=== PATIENT | female | born 2000 | race African-American/Black ===

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

== ENCOUNTER 2019-11-02 10:24 | Inpatient (IN) ==
[2019-11-02] MEDS ORDERED: LR 500 ML IV ONE (10:48)
[2019-11-02] MEDS ORDERED: ZOFRAN IV PRN (10:48)
[2019-11-02] MEDS ORDERED: PEPCID PO PRN (10:48)
[2019-11-02] MEDS ORDERED: PENICILLIN G POTASSIUM 5 MILL.UNITS in NS 100 ML IV ONE (10:48)
[2019-11-02] MEDS ORDERED: AMPICILLIN 2 GM in NS 100 ML IV ONE (10:48)
[2019-11-02] MEDS ORDERED: STADOL IV PRN (10:48)
[2019-11-02] MEDS ORDERED: KEFZOL 1 GM/D5W 1 GM/50 ML IVPB IV PRN (10:48)
[2019-11-02] MEDS ORDERED: PEPCID PO ONE (10:48)
[2019-11-02] MEDS ORDERED: PEPCID IV PRN (10:48)
[2019-11-02] MEDS ORDERED: REGLAN PO ONE (10:48)
[2019-11-02] MEDS ORDERED: SODIUM CHLORIDE 0.9% INJ SCH (11:00)
[2019-11-02] MEDS ORDERED: PITOCIN 30 UNITS/NS 30 UNIT/500 ML IV.SOLN IV SCH (11:00)
[2019-11-02 11:04] LABS: URINE SOURCE VOIDED
[2019-11-02 11:19] LABS: BILIRUBIN URINE NEGATIVE (NEGATIVE); BLOOD URINE NEGATIVE (NEGATIVE); COLOR YELLOW; GLUCOSE URINE NEGATIVE (NEGATIVE); KETONE URINE NEGATIVE (NEGATIVE); LEUKOCYTES URINE MODERATE (NEGATIVE); NITRITE URINE NEGATIVE (NEGATIVE); PH URINE 7.5; PROTEIN URINE NEGATIVE (NEGATIVE); SP GRAVITY URINE 1.013; TURBIDITY URINE HAZY (CLEAR); UROBILINOGEN URINE NORMAL (NORMAL)
[2019-11-02] MEDS: LR 1,000 ML IV SCH ×3 (11:43→21:05)
[2019-11-02 11:54] LABS: AGAP 15; ALBUMIN 3.2 g/dL (3.5-5.0); ALKALINE PHOSPHATASE 273 U/L (32-104); BUN 6 mg/dL (8-22); CALCIUM 9.2 mg/dL (8.8-10.2); CHLORIDE 102 mmol/L (98-107); COSMO 269; CREATININE 0.7 mg/dL (0.5-0.9); ESTIMATED GFR > 60; GLUCOSE 84 mg/dL (70-104); GOT 20 U/L (10-30); GPT 11 U/L (10-36); POTASSIUM 3.9 mmol/L (3.5-5.1); SODIUM 136 mmol/L (136-145); TCO2 19 mmol/L (25-35); TOTAL BILIRUBIN 0.45 mg/dL (0.20-1.00); TOTAL PROTEIN 6.5 g/dL (6.3-8.3); URIC ACID 4.9 mg/dL (2.4-5.7)
[2019-11-02 13:58] LABS: PROTEIN CREAT RATIO 0.1; UR CREAT RANDOM 106.1 mg/dL (11-20); UR PROT RANDOM 15.2 mg/dL
[2019-11-02 14:32] LABS: EOS# 0.32 X1000 (0.0-0.7); EOS% 2.8 % (0.0-10.0); HEMATOCRIT 34.9 % (37.0-47.0); HEMOGLOBIN 11.8 g/dL (12.0-16.0); IMM GRAN# 0.12 X1000 (0.0-0.04); IMM GRAN% 1.1 % (0.0-0.5); MCH 32.9 PG (27-31); MCHC 33.8 g/dL (33-37); MCV 97.2 FL (81-99); MONO# 1.09 X1000 (0.11-0.59); MONO% 9.7 % (1.7-9.3); MPV 8.2 FL (7.4-10.4); NEUT# 7.15 X1000 (1.4-6.5); NEUT% 63.4 % (42.2-75.2); PLT 427 X1000 (130-400); RBC 3.59 XMIL (4.2-5.4); RDW 12.6 % (11.5-14.5); WBC 11.28 X1000 (4.8-10.8)
[2019-11-02] MEDS ORDERED: NS IV SCH (14:51)
[2019-11-02] MEDS ORDERED: PENICILLIN POTASSIUM IV SCH (14:51)
[2019-11-02] MEDS: AMPICILLIN 1 GM in NS 50 ML IV SCH ×2 (15:33→19:42)
--- NOTE | 2019-11-02 20:17 | HISTORY AND PHYSICAL ---
CHIEF COMPLAINT: Gestational hypertension. HISTORY OF PRESENT ILLNESS: The patient is a 19-year-old, G2, P1, female at 37 weeks and 4 days gestation with EDC of 11/19/2018. She has been receiving her care with Dr. Wilson. In the last 2 visits, the patient has had blood pressures in the 140s over 90s. On office visit today, patient had a blood pressure of 140/95 in the office, and decision was made to send patient to Labor and Delivery for induction for gestational hypertension. The patient denies any headache or vision problems. She denies any chest pain or shortness of breath. She denies any numbness or tingling. She denies any peripheral edema. It was reported from office that patient was having complaints of right upper quadrant pain and on discussion with patient, she states it is in her lower ribcage on both sides. Per check in office, she is found to be 3 cm and thick per Dr. Wilson. On arrival, heart tones reactive and reassuring with occasional contractions noted. Blood pressures were ranging in the 120s to 130s over 70s on Labor and Delivery. Lab workup was initiated revealing sodium of 136, potassium of 3.9, BUN of 6, creatinine 0.7, glucose of 84, uric acid of 4.9, calcium level of 9.2, AST of 20, ALT of 11, hemoglobin of 11.8, 34.9 hematocrit, platelets of 427,000, and a white count of 11.28. PCR was 0.1, and an RPR was found to be nonreactive. She is known GBS positive. Therefore, ampicillin was started per protocol at noon while workup was being obtained. PAST MEDICAL HISTORY: Asthma in childhood and seasonal allergies for which patient reports the springtime is worse. MEDICATIONS: ProAir inhaler last use 2 days ago. She states that she uses her inhaler approximately 1-5 times a month depending on the season. Zyrtec p.r.n., and vitamin. ALLERGIES: Milk, tomatoes, shellfish and tree nut. No known drug allergies. PAST SURGICAL HISTORY: No surgeries. OBSTETRIC HISTORY: Spontaneous vaginal delivery 2017. Female , 37 weeks gestation, spontaneous rupture of membranes with Pitocin augmentation. Otherwise, no complications or problems with , 5 pounds 13 ounce infant. She does have a history of Chlamydia positive in 2016 that was treated. Chlamydia screening during , negative. FAMILY HISTORY: The patient reports as unremarkable. SOCIAL HISTORY: She denies tobacco use. Denies alcohol use and denies illicit drug use on direct questioning. PHYSICAL EXAMINATION: VITAL SIGNS: On intake, blood pressure 120/73, pulse ox 99% room air, respirations 20, temperature 98.8 degrees. GENERAL: Alert and oriented x3. No acute distress. CARDIOVASCULAR: Regular rate and rhythm. No murmur appreciated. LUNGS: Clear to auscultation bilaterally. ABDOMEN: Soft, nondistended, nontender. Gravid uterus, nontender. By [place] approximately 6 pounds in weight for fetus. Cephalic in presentation. Christopher's negative. No CVA tenderness. PELVIC EXAM: Normal external genitalia. No lesions noted. 3, 50, -2 on exam. Membranes intact. Midposition vertex. EXTREMITIES: No calf pain. No edema on exam. Reflexes 1+ patella and Achilles. No clonus. ASSESSMENT: A 19-year-old, G2, P1, female at 37 weeks 4 days with gestational hypertension for induction of labor. PLAN: 1. Admit to Labor and Delivery for induction secondary to gestational hypertension documented in the outpatient setting during care. 2. PIH labs performed. Creatinine 0.7, AST 20, ALT 11, platelets 427,000. Hemoglobin and hematocrit 11.8 and 34.9 respectively. Uric acid of 4.9 and a PCR ratio of 0.1. PIH labs within normal limits. 3. Continuous electronic monitoring. 4. GBS positive status. Ampicillin 2 g for initiation and will run 1 g IV q.4 hours. First dose of ampicillin was given at 12 noon. 5. The patient is 3 cm dilated, 50% effaced, -2 station, midposition with occasional contraction on toco. Discussed with patient induction risks and benefits including some theoretical risk of increased need of section as below 39 weeks, as well as risks for longer labor versus natural onset of labor. Pitocin use itself and the risks and benefits as well were discussed. The patient stated understanding and that she had Pitocin with her previous delivery as she was ruptured and was not juan f. The patient states understanding for Pitocin for induction and wishes to proceed. We will plan on starting Pitocin around 3:00 to 3:30 p.m. to allow penicillin on board prior. 6. The patient does desire epidural for pain management when time. I discussed with patient waiting until uncomfortable or cervical change or if water would spontaneously break. I did discuss with patient if lack of cervical change, the necessity for AROM and the risks and benefits of this if needed. 7. Chart reviewed. The patient declined Tdap and flu in the setting. We will address again . Rubella immune status noted. 8. Discussed with patient as being induced for gestational hypertension. Blood pressure is now stable. Blood pressures could go up during labor, during delivery or even , which would necessitate being treated with medications such as magnesium sulfate, and the risks and benefits of this as well as the possibility of need for antihypertensive medications including labetalol or hydralazine. She states understanding for this possibility. 9. Expectant management. Anticipate vaginal delivery. cc: Sandy Shaw MD MTDD
--- NOTE | 2019-11-02 20:52 | OB/GYN PROGRESS NOTE ---
- Subjective Patient without distress, discussed ultrasound for presentation, which was vertex, and also discussed using the Cook catheter to help dilate her cervix, patient agreeable to the same. OB Physical Exam Vital Signs - 8 hr 11/02/19 14:47 11/02/19 17:00 11/02/19 17:51 Temperature 98.7 F 99.5 F Pulse Rate 90 82 87 Respiratory Rate 20 20 20 Blood Pressure 122/75 123/72 121/72 O2 Sat by Pulse Oximetry 99 99 - CONSTITUTIONAL General Appearance: appears well, no apparent distress - GENITOURINARY Vaginal Exam: 2.5 cm, cook catheter placed and filled with 80/80 cc of fluid, patient laurie erated procedure well Cervical Effacement: 70 Station: -1 Active Medications Generic Name Dose Route Start Last Admin Trade Name Freq PRN Reason Stop Dose Admin Acetaminophen 650 mg 11/02/19 10:48 Tylenol PO Q4-6H PRN PRN Headache Butorphanol Tartrate 2 mg 11/02/19 10:48 Stadol IV PRN PRN Pain Famotidine 20 mg 11/02/19 10:48 Pepcid IV Q12H PRN PRN GI upset or indigestion Famotidine 40 mg 11/02/19 10:48 Pepcid PO Q12H PRN PRN GI upset or indigestion Ampicillin Sodium 1 gm/ Sodium 50 mls @ 100 mls/hr 11/02/19 14:49 11/02/19 19:42 Chloride IV 100 mls/hr Q4H VIKRAM Administration Cefazolin Sodium/Dextrose 1 gm in 50 mls @ 100 mls/hr 11/02/19 10:48 Kefzol 1 Gm/D5w IV ONCE PRN PRN SECTION Lactated Ringer's 1,000 mls @ 125 mls/hr 11/02/19 11:00 11/02/19 16:41 Lr IV 125 mls/hr .Q8H VIKRAM Administration Oxytocin/Sodium Chloride 30 unit in 500 mls @ 0 mls/hr 11/02/19 11:00 11/02/19 15:00 Pitocin 30 Units/Ns IV 1 mls/hr .Q0M VIKRAM Administration As Directed Ondansetron HCl 4 mg 11/02/19 10:48 Zofran IV PRN PRN Nausea Sodium Chloride 5 - 10 ml 11/02/19 11:00 Sodium Chloride 0.9% INJ DIRECTED VIKRAM Laboratory Results - last 24 hr 11/02/19 11/02/19 11/02/19 10:40 10:40 10:40 WBC 11.28 H RBC 3.59 L Hgb 11.8 L Hct 34.9 L MCV 97.2 MCH 32.9 H MCHC 33.8 RDW Std Deviation 12.6 Plt Count 427 H MPV 8.2 Immature Gran % (Auto) 1.1 H Neut % (Auto) 63.4 Lymph % (Auto) 23.0 [place] % (Auto) 9.7 H Eos % (Auto) 2.8 Baso % (Auto) 0.0 Immature Gran # (Auto) 0.12 H Neut # (Auto) 7.15 H Lymph # (Auto) 2.60 [place] # (Auto) 1.09 H Eos # (Auto) 0.32 Baso # (Auto) 0.00 Sodium Potassium Chloride Carbon Dioxide Anion Gap BUN Creatinine Estimated GFR/1.73 m2 BUN/Creatinine Ratio Glucose Calculated Osmolality Uric Acid Calcium Total Bilirubin AST ALT Alkaline Phosphatase Total Protein Albumin Globulin Albumin/Globulin Ratio Urine Source VOIDED Urine Color YELLOW Urine Turbidity HAZY Urine pH 7.5 Ur Specific [place] 1.013 Urine Protein NEGATIVE Ur Glucose (Stick) NEGATIVE Ur Ketones (Stick) NEGATIVE Urine Blood NEGATIVE Urine Nitrite NEGATIVE Urine Bilirubin NEGATIVE Urobilinogen Dipstick NORMAL Urine Leukocytes MODERATE A Ur Random Creatinine U Random Total Protein Protein/Creatinin Ratio RPR NON-REACTIVE 11/02/19 11/02/19 10:45 11:08 WBC RBC Hgb Hct MCV MCH MCHC RDW Std Deviation Plt Count MPV Immature Gran % (Auto) Neut % (Auto) Lymph % (Auto) [place] % (Auto) Eos % (Auto) Baso % (Auto) Immature Gran # (Auto) Neut # (Auto) Lymph # (Auto) [place] # (Auto) Eos # (Auto) Baso # (Auto) Sodium 136 Potassium 3.9 Chloride 102 Carbon Dioxide 19 L Anion Gap 15 BUN 6 L Creatinine 0.7 Estimated GFR/1.73 m2 > 60 BUN/Creatinine Ratio 9 Glucose 84 Calculated Osmolality 269 Uric Acid 4.9 Calcium 9.2 Total Bilirubin 0.45 AST 20 ALT 11 Alkaline Phosphatase 273 H Total Protein 6.5 Albumin 3.2 L Globulin 3.3 Albumin/Globulin Ratio 1.0 Urine Source Urine Color Urine Turbidity Urine pH Ur Specific [place] Urine Protein Ur Glucose (Stick) Ur Ketones (Stick) Urine Blood Urine Nitrite Urine Bilirubin Urobilinogen Dipstick Urine Leukocytes Ur Random Creatinine 106.1 H U Random Total Protein 15.2 Protein/Creatinin Ratio 0.1 RPR
[2019-11-02] MEDS ORDERED: NAROPIN 0.2% INJ ONE (21:15)
[2019-11-02] MEDS ORDERED: FENTANYL-BUPIV-NS 500 MCG-0.125% 250 ML EPIDURAL SCH (22:00)
--- NOTE | 2019-11-02 23:03 | OB/GYN PROGRESS NOTE ---
- Subjective comfortable with epidural, bliss been placed OB Physical Exam Vital Signs - 8 hr 11/02/19 17:00 11/02/19 17:51 Temperature 99.5 F Pulse Rate 82 87 Respiratory Rate 20 20 Blood Pressure 123/72 121/72 O2 Sat by Pulse Oximetry 99 99 - CONSTITUTIONAL General Appearance: alert, no apparent distress - GENITOURINARY Cervica Dilation: 6 cm Cervical Effacement: 90 Station: -1 Heart Rate: stable Active Medications Generic Name Dose Route Start Last Admin Trade Name Freq PRN Reason Stop Dose Admin Acetaminophen 650 mg 11/02/19 10:48 Tylenol PO Q4-6H PRN PRN Headache Butorphanol Tartrate 2 mg 11/02/19 10:48 Stadol IV PRN PRN Pain Famotidine 20 mg 11/02/19 10:48 Pepcid IV Q12H PRN PRN GI upset or indigestion Famotidine 40 mg 11/02/19 10:48 Pepcid PO Q12H PRN PRN GI upset or indigestion Ampicillin Sodium 1 gm/ Sodium 50 mls @ 100 mls/hr 11/02/19 14:49 11/02/19 19:42 Chloride IV 100 mls/hr Q4H VIKRAM Administration Cefazolin Sodium/Dextrose 1 gm in 50 mls @ 100 mls/hr 11/02/19 10:48 Kefzol 1 Gm/D5w IV ONCE PRN PRN SECTION Lactated Ringer's 1,000 mls @ 125 mls/hr 11/02/19 11:00 11/02/19 21:05 Lr IV 125 mls/hr .Q8H VIKRAM Administration Oxytocin/Sodium Chloride 30 unit in 500 mls @ 0 mls/hr 11/02/19 11:00 11/02/19 15:00 Pitocin 30 Units/Ns IV 1 mls/hr .Q0M VIKRAM Administration As Directed Fentanyl/Bupivacaine/Sodium Chlor 250 mls @ 0 mls/hr 11/02/19 22:00 11/02/19 22:34 [id number] 500 Mcg-0.125% EPIDURAL 12 mls/hr DIRECTED VIKRAM Administration As Directed Ondansetron HCl 4 mg 11/02/19 10:48 Zofran IV PRN PRN Nausea Sodium Chloride 5 - 10 ml 11/02/19 11:00 Sodium Chloride 0.9% INJ DIRECTED VIKRAM Laboratory Results - last 24 hr 11/02/19 11/02/19 11/02/19 10:40 10:40 10:40 WBC 11.28 H RBC 3.59 L Hgb 11.8 L Hct 34.9 L MCV 97.2 MCH 32.9 H MCHC 33.8 RDW Std Deviation 12.6 Plt Count 427 H MPV 8.2 Immature Gran % (Auto) 1.1 H Neut % (Auto) 63.4 Lymph % (Auto) 23.0 [place] % (Auto) 9.7 H Eos % (Auto) 2.8 Baso % (Auto) 0.0 Immature Gran # (Auto) 0.12 H Neut # (Auto) 7.15 H Lymph # (Auto) 2.60 [place] # (Auto) 1.09 H Eos # (Auto) 0.32 Baso # (Auto) 0.00 Sodium Potassium Chloride Carbon Dioxide Anion Gap BUN Creatinine Estimated GFR/1.73 m2 BUN/Creatinine Ratio Glucose Calculated Osmolality Uric Acid Calcium Total Bilirubin AST ALT Alkaline Phosphatase Total Protein Albumin Globulin Albumin/Globulin Ratio Urine Source VOIDED Urine Color YELLOW Urine Turbidity HAZY Urine pH 7.5 Ur Specific [place] 1.013 Urine Protein NEGATIVE Ur Glucose (Stick) NEGATIVE Ur Ketones (Stick) NEGATIVE Urine Blood NEGATIVE Urine Nitrite NEGATIVE Urine Bilirubin NEGATIVE Urobilinogen Dipstick NORMAL Urine Leukocytes MODERATE A Ur Random Creatinine U Random Total Protein Protein/Creatinin Ratio RPR NON-REACTIVE 11/02/19 11/02/19 10:45 11:08 WBC RBC Hgb Hct MCV MCH MCHC RDW Std Deviation Plt Count MPV Immature Gran % (Auto) Neut % (Auto) Lymph % (Auto) [place] % (Auto) Eos % (Auto) Baso % (Auto) Immature Gran # (Auto) Neut # (Auto) Lymph # (Auto) [place] # (Auto) Eos # (Auto) Baso # (Auto) Sodium 136 Potassium 3.9 Chloride 102 Carbon Dioxide 19 L Anion Gap 15 BUN 6 L Creatinine 0.7 Estimated GFR/1.73 m2 > 60 BUN/Creatinine Ratio 9 Glucose 84 Calculated Osmolality 269 Uric Acid 4.9 Calcium 9.2 Total Bilirubin 0.45 AST 20 ALT 11 Alkaline Phosphatase 273 H Total Protein 6.5 Albumin 3.2 L Globulin 3.3 Albumin/Globulin Ratio 1.0 Urine Source Urine Color Urine Turbidity Urine pH Ur Specific [place] Urine Protein Ur Glucose (Stick) Ur Ketones (Stick) Urine Blood Urine Nitrite Urine Bilirubin Urobilinogen Dipstick Urine Leukocytes Ur Random Creatinine 106.1 H U Random Total Protein 15.2 Protein/Creatinin Ratio 0.1 RPR OB Assessment & Plan (1) Normal labor Status: Acute Plan: routine care
[2019-11-03] MEDS: AMPICILLIN 1 GM in NS 50 ML IV SCH ×3 (01:20→04:44)
--- NOTE | 2019-11-03 01:35 | OB/GYN PROGRESS NOTE ---
- Subjective comfortable OB Physical Exam Vital Signs - 8 hr 11/02/19 17:51 Pulse Rate 87 Respiratory Rate 20 Blood Pressure 121/72 O2 Sat by Pulse Oximetry 99 - CONSTITUTIONAL General Appearance: no apparent distress - GENITOURINARY Vaginal Exam: AROM, IUPC placed Cervica Dilation: 6.5 cm Cervical Effacement: 90 Station: 0 Heart Rate: note early decels, patient repositioned, o2 Active Medications Generic Name Dose Route Start Last Admin Trade Name Freq PRN Reason Stop Dose Admin Acetaminophen 650 mg 11/02/19 10:48 Tylenol PO Q4-6H PRN PRN Headache Butorphanol Tartrate 2 mg 11/02/19 10:48 Stadol IV PRN PRN Pain Famotidine 20 mg 11/02/19 10:48 Pepcid IV Q12H PRN PRN GI upset or indigestion Famotidine 40 mg 11/02/19 10:48 Pepcid PO Q12H PRN PRN GI upset or indigestion Ampicillin Sodium 1 gm/ Sodium 50 mls @ 100 mls/hr 11/02/19 14:49 11/03/19 01:20 Chloride IV 100 mls/hr Q4H VIKRAM Administration Cefazolin Sodium/Dextrose 1 gm in 50 mls @ 100 mls/hr 11/02/19 10:48 Kefzol 1 Gm/D5w IV ONCE PRN PRN SECTION Lactated Ringer's 1,000 mls @ 125 mls/hr 11/02/19 11:00 11/02/19 21:05 Lr IV 125 mls/hr .Q8H VIKRAM Administration Oxytocin/Sodium Chloride 30 unit in 500 mls @ 0 mls/hr 11/02/19 11:00 11/02/19 15:00 Pitocin 30 Units/Ns IV 1 mls/hr .Q0M VIKRAM Administration As Directed Fentanyl/Bupivacaine/Sodium Chlor 250 mls @ 0 mls/hr 11/02/19 22:00 11/02/19 22:34 [id number]-Iz 500 Mcg-0.125% EPIDURAL 12 mls/hr DIRECTED VIKRAM Administration As Directed Ondansetron HCl 4 mg 11/02/19 10:48 Zofran IV PRN PRN Nausea Sodium Chloride 5 - 10 ml 11/02/19 11:00 Sodium Chloride 0.9% INJ DIRECTED VIKRAM Laboratory Results - last 24 hr 11/02/19 11/02/19 11/02/19 10:40 10:40 10:40 WBC 11.28 H RBC 3.59 L Hgb 11.8 L Hct 34.9 L MCV 97.2 MCH 32.9 H MCHC 33.8 RDW Std Deviation 12.6 Plt Count 427 H MPV 8.2 Immature Gran % (Auto) 1.1 H Neut % (Auto) 63.4 Lymph % (Auto) 23.0 [place] % (Auto) 9.7 H Eos % (Auto) 2.8 Baso % (Auto) 0.0 Immature Gran # (Auto) 0.12 H Neut # (Auto) 7.15 H Lymph # (Auto) 2.60 [place] # (Auto) 1.09 H Eos # (Auto) 0.32 Baso # (Auto) 0.00 Sodium Potassium Chloride Carbon Dioxide Anion Gap BUN Creatinine Estimated GFR/1.73 m2 BUN/Creatinine Ratio Glucose Calculated Osmolality Uric Acid Calcium Total Bilirubin AST ALT Alkaline Phosphatase Total Protein Albumin Globulin Albumin/Globulin Ratio Urine Source VOIDED Urine Color YELLOW Urine Turbidity HAZY Urine pH 7.5 Ur Specific [place] 1.013 Urine Protein NEGATIVE Ur Glucose (Stick) NEGATIVE Ur Ketones (Stick) NEGATIVE Urine Blood NEGATIVE Urine Nitrite NEGATIVE Urine Bilirubin NEGATIVE Urobilinogen Dipstick NORMAL Urine Leukocytes MODERATE A Ur Random Creatinine U Random Total Protein Protein/Creatinin Ratio RPR NON-REACTIVE 11/02/19 11/02/19 10:45 11:08 WBC RBC Hgb Hct MCV MCH MCHC RDW Std Deviation Plt Count MPV Immature Gran % (Auto) Neut % (Auto) Lymph % (Auto) [place] % (Auto) Eos % (Auto) Baso % (Auto) Immature Gran # (Auto) Neut # (Auto) Lymph # (Auto) [place] # (Auto) Eos # (Auto) Baso # (Auto) Sodium 136 Potassium 3.9 Chloride 102 Carbon Dioxide 19 L Anion Gap 15 BUN 6 L Creatinine 0.7 Estimated GFR/1.73 m2 > 60 BUN/Creatinine Ratio 9 Glucose 84 Calculated Osmolality 269 Uric Acid 4.9 Calcium 9.2 Total Bilirubin 0.45 AST 20 ALT 11 Alkaline Phosphatase 273 H Total Protein 6.5 Albumin 3.2 L Globulin 3.3 Albumin/Globulin Ratio 1.0 Urine Source Urine Color Urine Turbidity Urine pH Ur Specific [place] Urine Protein Ur Glucose (Stick) Ur Ketones (Stick) Urine Blood Urine Nitrite Urine Bilirubin Urobilinogen Dipstick Urine Leukocytes Ur Random Creatinine 106.1 H U Random Total Protein 15.2 Protein/Creatinin Ratio 0.1 RPR OB Assessment & Plan (1) Normal labor Status: Acute Plan: follow closely, expect delivery
[2019-11-03] MEDS: LR 1,000 ML IV SCH (03:38)
--- NOTE | 2019-11-03 04:14 | OB/GYN PROGRESS NOTE ---
- Subjective comfortable OB Physical Exam - CONSTITUTIONAL General Appearance: no apparent distress - GENITOURINARY Cervica Dilation: 8.5 Cervical Effacement: 100 Station: 0 Heart Rate: reactive Active Medications Generic Name Dose Route Start Last Admin Trade Name Freq PRN Reason Stop Dose Admin Acetaminophen 650 mg 11/02/19 10:48 Tylenol PO Q4-6H PRN PRN Headache Butorphanol Tartrate 2 mg 11/02/19 10:48 Stadol IV PRN PRN Pain Famotidine 20 mg 11/02/19 10:48 Pepcid IV Q12H PRN PRN GI upset or indigestion Famotidine 40 mg 11/02/19 10:48 Pepcid PO Q12H PRN PRN GI upset or indigestion Ampicillin Sodium 1 gm/ Sodium 50 mls @ 100 mls/hr 11/02/19 14:49 11/03/19 02:50 Chloride IV Not Given Q4H VIKRAM Cefazolin Sodium/Dextrose 1 gm in 50 mls @ 100 mls/hr 11/02/19 10:48 Kefzol 1 Gm/D5w IV ONCE PRN PRN SECTION Lactated Ringer's 1,000 mls @ 125 mls/hr 11/02/19 11:00 11/03/19 03:38 Lr IV Not Given .Q8H VIKRAM Oxytocin/Sodium Chloride 30 unit in 500 mls @ 0 mls/hr 11/02/19 11:00 1 01/03/19 15:00 Pitocin 30 Units/Ns IV 1 mls/hr .Q0M VIKRAM Administration As Directed Fentanyl/Bupivacaine/Sodium Chlor 250 mls @ 0 mls/hr 11/02/19 22:00 11/02/19 22:34 Lafmdnqt-Fdcuh-Ho 500 Mcg-0.125% EPIDURAL 12 mls/hr DIRECTED VIKRAM Administration As Directed Ondansetron HCl 4 mg 11/02/19 10:48 Zofran IV PRN PRN Nausea Sodium Chloride 5 - 10 ml 11/02/19 11:00 Sodium Chloride 0.9% INJ DIRECTED VIKRAM Laboratory Results - last 24 hr 11/02/19 11/02/19 11/02/19 10:40 10:40 10:40 WBC 11.28 H RBC 3.59 L Hgb 11.8 L Hct 34.9 L MCV 97.2 MCH 32.9 H MCHC 33.8 RDW Std Deviation 12.6 Plt Count 427 H MPV 8.2 Immature Gran % (Auto) 1.1 H Neut % (Auto) 63.4 Lymph % (Auto) 23.0 [place] % (Auto) 9.7 H Eos % (Auto) 2.8 Baso % (Auto) 0.0 Immature Gran # (Auto) 0.12 H Neut # (Auto) 7.15 H Lymph # (Auto) 2.60 [place] # (Auto) 1.09 H Eos # (Auto) 0.32 Baso # (Auto) 0.00 Sodium Potassium Chloride Carbon Dioxide Anion Gap BUN Creatinine Estimated GFR/1.73 m2 BUN/Creatinine Ratio Glucose Calculated Osmolality Uric Acid Calcium Total Bilirubin AST ALT Alkaline Phosphatase Total Protein Albumin Globulin Albumin/Globulin Ratio Urine Source VOIDED Urine Color YELLOW Urine Turbidity HAZY Urine pH 7.5 Ur Specific [place] 1.013 Urine Protein NEGATIVE Ur Glucose (Stick) NEGATIVE Ur Ketones (Stick) NEGATIVE Urine Blood NEGATIVE Urine Nitrite NEGATIVE Urine Bilirubin NEGATIVE Urobilinogen Dipstick NORMAL Urine Leukocytes MODERATE A Ur Random Creatinine U Random Total Protein Protein/Creatinin Ratio RPR NON-REACTIVE 11/02/19 11/02/19 10:45 11:08 WBC RBC Hgb Hct MCV MCH MCHC RDW Std Deviation Plt Count MPV Immature Gran % (Auto) Neut % (Auto) Lymph % (Auto) [place] % (Auto) Eos % (Auto) Baso % (Auto) Immature Gran # (Auto) Neut # (Auto) Lymph # (Auto) [place] # (Auto) Eos # (Auto) Baso # (Auto) Sodium 136 Potassium 3.9 Chloride 102 Carbon Dioxide 19 L Anion Gap 15 BUN 6 L Creatinine 0.7 Estimated GFR/1.73 m2 > 60 BUN/Creatinine Ratio 9 Glucose 84 Calculated Osmolality 269 Uric Acid 4.9 Calcium 9.2 Total Bilirubin 0.45 AST 20 ALT 11 Alkaline Phosphatase 273 H Total Protein 6.5 Albumin 3.2 L Globulin 3.3 Albumin/Globulin Ratio 1.0 Urine Source Urine Color Urine Turbidity Urine pH Ur Specific [place] Urine Protein Ur Glucose (Stick) Ur Ketones (Stick) Urine Blood Urine Nitrite Urine Bilirubin Urobilinogen Dipstick Urine Leukocytes Ur Random Creatinine 106.1 H U Random Total Protein 15.2 Protein/Creatinin Ratio 0.1 RPR OB Assessment & Plan (1) Normal labor Plan: Patient placed on the peanut ball, pitocin restarted on #2, continue to follow closely
[2019-11-03] MEDS ORDERED: BENADRYL PO PRN (06:46)
[2019-11-03] MEDS ORDERED: BENADRYL IV PRN (06:46)
[2019-11-03] MEDS ORDERED: PITOCIN IM PRN (06:46)
[2019-11-03] MEDS ORDERED: PERI MEDS (DERMOPLAST/NUPERCAINAL/TUCKS) MISC PRN (06:46)
[2019-11-03] MEDS ORDERED: MINERAL OIL PO PRN (06:46)
[2019-11-03] MEDS ORDERED: HYDROXYZINE IM PRN (06:46)
[2019-11-03] MEDS ORDERED: XYLOCAINE-MPF 1% INJ PRN (06:46)
[2019-11-03] MEDS ORDERED: AMBIEN PO PRN (06:46)
[2019-11-03] MEDS ORDERED: ATARAX PO PRN (06:46)
[2019-11-03] MEDS ORDERED: M-M-R II VACCINE SUBQ ONE (06:46)
[2019-11-03] MEDS ORDERED: BOOSTRIX VACCINE IM ONE (06:46)
[2019-11-03] MEDS ORDERED: CYTOTEC PO PRN (06:46)
[2019-11-03] MEDS ORDERED: PITOCIN 20 UNITS/NS 20 UNITS/1,000 ML IV.SOLN IV SCH (07:00)
[2019-11-03] MEDS ORDERED: PITOCIN 30 UNITS/NS 30 UNIT/500 ML IV.SOLN IV SCH (07:00)
--- NOTE | 2019-11-03 07:56 | OPERATIVE NOTE ---
PROCEDURE DATE : 11/03/2019 PROCEDURE: The patient delivered a spontaneous vaginal delivery of a full-term living female child, Apgars 8 and 9. Placenta was spontaneously expelled. There was no episiotomy, no lacerations, and no repair. Bleeding was normal, approximately less than 200 mL. The patient's vital signs were stable. She was sent for routine care. cc: Sandy Shaw MD delivery time at 6:30 am [facility]
--- NOTE | 2019-11-03 07:57 | OPERATIVE NOTE ---
PROCEDURE DATE : 11/03/2019 The patient delivered spontaneously of a full-term living female child on 11/03/2019 at 6:30 a.m. Apgars were 8 and 9. Placenta was spontaneously delivered. There was no episiotomy, no laceration, no repair. Bleeding was normal, less than 200 mL. The patient's vital signs were stable. Routine care. cc: Sandy Shaw MD
[2019-11-03] MEDS: MOTRIN PO PRN ×2 (11:22→20:00)
[2019-11-03] MEDS: TYLENOL PO PRN (23:59)
[2019-11-04 05:44] LABS: BASO# 0.01 X1000 (0.0-0.2); BASO% 0.1 % (0.0-0.8); EOS# 0.63 X1000 (0.0-0.7); EOS% 3.7 % (0.0-10.0); HEMATOCRIT 33.1 % (37.0-47.0); HEMOGLOBIN 10.9 g/dL (12.0-16.0); IMM GRAN# 0.11 X1000 (0.0-0.04); IMM GRAN% 0.6 % (0.0-0.5); LYMPH# 3.45 X1000 (1.2-3.4); LYMPH% 20.3 % (20.5-51.1); MCH 32.3 PG (27-31); MCHC 32.9 g/dL (33-37); MCV 98.2 FL (81-99); MONO# 1.68 X1000 (0.11-0.59); MONO% 9.9 % (1.7-9.3); MPV 8.3 FL (7.4-10.4); NEUT# 11.08 X1000 (1.4-6.5); NEUT% 65.4 % (42.2-75.2); PLT 392 X1000 (130-400); RBC 3.37 XMIL (4.2-5.4); RDW 12.5 % (11.5-14.5); WBC 16.96 X1000 (4.8-10.8)
--- NOTE | 2019-11-04 07:40 | OB/GYN PROGRESS NOTE ---
- Subjective 19 yo PPD#1 s/p at 37w5d with GHTN, asthma, Hx chlamydia Patient seen and examined. This AM she complains of RUQ pain. She states it st arted this AM. Pain controlled. She denies any headache, vision changes, chest pain ,SOB. She notes normal lochia. She is ambulating and voiding without difficulty. She is tolerating a regular diet, denies nausea/vomiting. She states baby is doing well in the nursery. She has been trying to breastfeed, but has had some difficulties with latching. She plans to have an interval BTL for PP contraception. OB Physical Exam Vital Signs - 8 hr 11/04/19 00:00 11/04/19 05:05 Temperature 96.6 F L 97 F L Pulse Rate 81 86 Respiratory Rate 16 16 Blood Pressure 124/69 111/79 O2 Sat by Pulse Oximetry 99 99 - CONSTITUTIONAL General Appearance: appears well, alert, no apparent distress - HEAD, EARS, NOSE, MOUTH & THROAT HENMT: normocephalic/atraumatic - RESPIRATORY Respiratory: lungs clear, normal breath sounds - CARDIOVASCULAR Cardiovascular: regular rate, rhythm - GASTROINTESTINAL (ABDOMEN) Abdominal Exam: normal bowel sounds, soft, other (ATTP, fundus firm/below umbilicus) - MUSCULOSKELETAL Extremity: normal range of motion, non-tender, no pedal edema DTR: knee (R): 1+, knee (L): 1+ - SKIN Integumentary: normal color - PSYCHIATRIC Psych/Mental Status: normal mood/affect Active Medications Generic Name Dose Route Start Last Admin Trade Name Freq PRN Reason Stop Dose Admin Acetaminophen 650 mg 11/02/19 10:48 11/03/19 23:59 Tylenol PO 650 mg Q4-6H PRN PRN Administration Headache Benzocaine 1 each 11/03/19 06:46 Elin Meds (Dermoplast/Nupercainal/Tucks) MISC 3-4XDAY PRN PRN episiotomy/hemorrhoids Diphenhydramine HCl 25 mg 11/03/19 06:46 Benadryl PO Q4H PRN PRN Itching Famotidine 40 mg 11/02/19 10:48 Pepcid PO Q12H PRN PRN GI upset or indigestion Hydroxyzine HCl 50 mg 11/03/19 06:46 Atarax PO Q3-4H PRN PRN Nausea Hydroxyzine HCl 50 mg 11/03/19 06:46 Hydroxyzine IM Q3-4H PRN PRN Nausea Ibuprofen 800 mg 11/03/19 06:46 11/03/19 20:00 Motrin PO 800 mg Q8H PRN PRN Administration cramping Misoprostol 800 microgm 11/03/19 06:46 Cytotec PO PRN PRN Severe bleeding Senna/Docusate Sodium 1 each 11/03/19 21:00 11/04/19 00:00 Pericolace PO 1 each QHS VIKRAM Administration Zolpidem Tartrate 10 mg 11/03/19 06:46 Ambien PO HS PRN PRN Sleep Laboratory Results - last 24 hr 11/04/19 05:16 WBC 16.96 H RBC 3.37 L Hgb 10.9 L Hct 33.1 L MCV 98.2 MCH 32.3 H MCHC 32.9 L RDW Std Deviation 12.5 Plt Count 392 MPV 8.3 Immature Gran % (Auto) 0.6 H Neut % (Auto) 65.4 Lymph % (Auto) 20.3 L [place] % (Auto) 9.9 H Eos % (Auto) 3.7 Baso % (Auto) 0.1 Immature Gran # (Auto) 0.11 H Neut # (Auto) 11.08 H Lymph # (Auto) 3.45 H [place] # (Auto) 1.68 H Eos # (Auto) 0.63 Baso # (Auto) 0.01 OB Assessment & Plan (1) Status post vaginal delivery Status: Acute Plan: 19 yo PPD#1 s/p at 37w5d with GHTN, asthma, Hx chlamydia 1. HD stable, afebrile, PP Hgb 10.9 2. Routine PP Care 3. Will check LFTs due to complaint of RUQ pain 4. Encourage ambulation, 5. Plans for interval BTL for PP contraception 6. Monitor BP (2) Gestational hypertension Status: Acute Plan: -
[2019-11-04] MEDS: MOTRIN PO PRN ×2 (08:10→16:41)
[2019-11-04] MEDS: PERICOLACE PO SCH ×2 (20:23)
[2019-11-04] MEDS: TYLENOL PO PRN (20:24)
--- NOTE | 2019-11-05 07:52 | OB/GYN PROGRESS NOTE ---
- Subjective Pt seen and examined. Currently;y w/o complaints. Ambulating and urinating w/o difficulty. Tolerating regular diet. +bottle feeding. Decreased lochia. OB Physical Exam Vital Signs - 8 hr 11/05/19 00:23 Temperature 97.6 F Pulse Rate 81 Respiratory Rate 16 Blood Pressure 128/71 O2 Sat by Pulse Oximetry 97 - CONSTITUTIONAL General Appearance: appears well, alert, no apparent distress - RESPIRATORY Respiratory: lungs clear, normal breath sounds - CARDIOVASCULAR Cardiovascular: regular rate, rhythm - GASTROINTESTINAL (ABDOMEN) Abdominal Exam: non tender (FF below umbilicus), soft - MUSCULOSKELETAL Extremity: no pedal edema, no calf tenderness - PSYCHIATRIC Psych/Mental Status: normal mood/affect, oriented x 3 Active Medications Generic Name Dose Route Start Last Admin Trade Name Freq PRN Reason Stop Dose Admin Acetaminophen 650 mg 11/02/19 10:48 11/04/19 20:24 Tylenol PO 650 mg Q4-6H PRN PRN Administration Headache Benzocaine 1 each 11/03/19 06:46 Elin Meds (Dermoplast/Nupercainal/Tucks) MISC 3-4XDAY PRN PRN episiotomy/hemorrhoids Diphenhydramine HCl 25 mg 11/03/19 06:46 Benadryl PO Q4H PRN PRN Itching Famotidine 40 mg 11/02/19 10:48 Pepcid PO Q12H PRN PRN GI upset or indigestion Hydroxyzine HCl 50 mg 11/03/19 06:46 Atarax PO Q3-4H PRN PRN Nausea Hydroxyzine HCl 50 mg 11/03/19 06:46 Hydroxyzine IM Q3-4H PRN PRN Nausea Ibuprofen 800 mg 11/03/19 06:46 11/04/19 16:41 Motrin PO 800 mg Q8H PRN PRN Administration cramping Senna/Docusate Sodium 1 each 11/03/19 21:00 11/04/19 20:23 Pericolace PO 1 each QHS VIKRAM Administration Zolpidem Tartrate 10 mg 11/03/19 06:46 Ambien PO HS PRN PRN Sleep OB Assessment & Plan (1) Vaginal delivery Status: Resolved Plan: 19yo PPD#2 s/p with gestational HTN -HD stable -OOB to ambulation -Reg diet -LFTs wnl -plan for PP LSC BTL at 6 weeks -d/c home today -f/u in office in 2 weeks
[2019-11-05 08:21] VITALS: BP 131/85
[2019-11-05] MEDS: MOTRIN PO PRN (09:39)
== END 2019-11-05 11:38 | disposition home or self-care (01) | DRG 807 ==
LOC: LD 10:24
PROVIDERS: ADMIT Obstetrics & Gynecology; ATTEND Obstetrics & Gynecology